=== PATIENT | male | born 1970 | race Caucasian/White ===

== ENCOUNTER 2018-06-08 14:46 | Emergency (ER) | payer MEDICAID ==
--- NOTE | 2018-06-08 16:05 | Emergency Department Record ---
History of Present Illness - General Chief Complaint: Abdominal Pain Stated Complaint: ABD PAIN, BLOATING Time Seen by Provider: 06/08/18 16:04 Source: Patient Mode of Arrival: Ambulatory Limitations: No limitations - History of Present Illness Initial Comments: 48 yo male presents with abdominal pain and bloating for about 2 months. It is worse with certain foods or eating. He say his PCP and has been on GERD medication. He states he is not improved yet. He has some nausea. NO fevers. NO vomiting or diarrhea. No back pain or rash. He had a hernia repaired as an infant. MD Complaint: Abdominal pain Location: Epigastric, RUQ Migration to: Epigastric, RUQ Severity: Moderate Quality: Aching Consistency: Intermittent Improves With: Nothing Worsens With: Eating Context: Other Associated Symptoms: Anorexia, Other (weight gain) - Related Data Home Medications Medication Instructions Recorded Confirmed Last Taken Chlorthalidone 25 mg PO ASDIR 06/08/18 06/08/18 06/08/18 Omeprazole [Prilosec] 40 mg PO DAILY 06/08/18 06/08/18 06/08/18 Tizanidine HCl 4 mg PO ASDIR 06/08/18 06/08/18 06/08/18 Previous Rx's Medication Instructions Recorded Ondansetron [Zofran Odt] 4 mg PO Q8H #15 tab.rapdis 06/08/18 Sucralfate [Carafate] 1 g PO BID #30 udc 06/08/18 Allergies Allergy/AdvReac Type Severity Reaction Status Date / Time No Known Drug Allergies Allergy Verified 06/08/18 15:52 Review of Systems Constitutional: Denies: Chills, Fever, Malaise, Weakness Eyes: Denies: Eye discharge ENT: Denies: Congestion, Throat pain Respiratory: Denies: Cough, Dyspnea, Hemoptysis, Stridor, Wheezes Cardiovascular: Denies: Chest pain, Palpitations, Syncope Endocrine: Denies: Fatigue Gastrointestinal: Reports: Abdominal pain, Nausea. Denies: Diarrhea, Vomiting Genitourinary: Denies: Dysuria, Frequency, Hematuria Musculoskeletal: Denies: Arthralgia, Back pain, Myalgia Skin: Denies: Bruising, Change in color, Rash Neurological: Denies: Headache, Numbness, Weakness Psychiatric: Denies: Anxiety Hematological/Lymphatic: Denies: Easy bleeding, Easy bruising Past Medical History - SOCIAL HISTORY Smoking Status: Former smoker - RESPIRATORY Hx Respiratory Disorders: No - CARDIOVASCULAR Hx Cardio Disorders: Yes Hx Hypertension: Yes - NEURO Hx Neuro Disorders: Yes Hx Headaches: Yes Comment:: sinus polps - GI Hx GI Disorders: Yes Hx Reflux: Yes - Hx Genitourinary Disorders: No - ENDOCRINE Hx Endocrine Disorders: Yes Hx Diabetes: No Hx Thyroid Disease: Yes - MUSCULOSKELETAL Hx Musculoskeletal Disorders: Yes Hx Arthritis: Yes - PSYCH Hx Psych Problems: Yes Hx Anxiety: Yes Hx Depression: Yes - HEMATOLOGY/ONCOLOGY Hx Hematology/Oncology Disorders: No Family Medical History Hx Anxiety: Grandparents Hx Diabetes: Father, Mother, Grandparents Hx Heart Disease: Father, Grandparents Hx Stroke: Grandparents Physical Exam - General General Appearance: Alert, Oriented x3, Cooperative, No acute distress Limitations: No limitations - Head Head exam: Normal inspection - Eye Eye exam: Normal appearance. negative: Conjunctival injection, Scleral icterus - ENT ENT exam: Normal exam Ear exam: Normal external inspection Nasal Exam: Normal inspection Mouth exam: Normal external inspection - Neck Neck exam: Normal inspection - Respiratory Respiratory exam: Normal lung sounds bilaterally. negative: Respiratory distress - Cardiovascular Cardiovascular Exam: Regular rate, Normal rhythm, Normal heart sounds - GI/Abdominal GI/Abdominal exam: Soft, Normal bowel sounds, Tenderness (mildly tender RUQ and epigastric). negative: Distended, Guarding, Rebound, Rigid - Rectal Rectal exam: Deferred - exam: Deferred - Extremities Extremities exam: Normal inspection, Full ROM, Normal capillary refill. negative: Tenderness - Back Back exam: Reports: Normal inspection, Full ROM. Denies: Muscle spasm, Rash noted, Tenderness - Neurological Neurological exam: Alert, Oriented X3 - Psychiatric Psychiatric exam: Normal affect, Normal mood - Skin Skin exam: Dry, Intact, Normal color, Warm Course - Reevaluation(s) Reevaluation #1: 06/08/18 17:23 The labs were reviewed. The K is 3.1 The CBC is normal The AST is 52 and ALT is 67 Normal Alk Phos and Bili. 06/08/18 17:24 The UA is normal 06/08/18 19:31 CT scan is negative for acute process. Hiatal Hernia. Medical Decision Making - Lab Data Result diagrams: 06/08/18 16:23 06/08/18 16:23 Disposition Disposition: Discharge Clinical Impression: Abdominal pain, Hiatal hernia Disposition: Home, Self-Care Condition: (1) Good Instructions: Abdominal Pain (ED), Gastroesophageal Reflux Disease (ED) Additional Instructions: Call your doctor this week for a recheck If your symptoms continue you may need an Ultrasound as well of your gall bladder or a HIDA scan Follow up with the GI doctor as scheduled for your evaluation Prescriptions: Ondansetron [Zofran Odt] 4 mg PO Q8H #15 tab.rapdis Sucralfate [Carafate] 1 g PO BID #30 udc Forms: Patient Portal Access Time of Disposition: 19:32 Quality - Quality Measures Quality Measures: N/A - Blood Pressure Screening Does Patient Have Any of the Following: No Blood Pressure Classification: Hypertensive Reading Systolic Measurement: 138 Diastolic Measurement: 91 Screening for High Blood Pressure: < Pre-Hypertensive BP, F/U Documented > [ [id number]] Pre-Hypertensive Follow-up Interventions: Referral to alternative/primary care provider.
[2018-06-08] MEDS ORDERED: 0.9 % SODIUM CHLORIDE 1,000 ML BAG IV ONE (16:13)
[2018-06-08] MEDS ORDERED: ACETAMINOPHEN 1,000 MG/100 ML BTL IVPB ONE (16:13)
[2018-06-08] MEDS: ONDANSETRON HCL IV 4 MG/2 ML VIAL IVP ONE ×2 (16:25→16:29)
[2018-06-08 16:34] LABS: BASO % 0.6 % (0-6); EOS % 7.5 % (0-6); GRAN % 62.1 % (47-80); HEMATOCRIT 46.4 % (42.0-52.0); HEMOGLOBIN 15.8 gm/dl (14.0-18.0); MEAN CELL VOLUME 90.8 fl (81-97); MEAN CORPUSCULAR HEMOGLOBIN 30.9 pg (27-33); MEAN CORPUSCULAR HGB CONC 34.1 g/dl (32-36); MEAN PLATELET VOLUME 10.5 fl (7.4-10.4); MONO % 8.8 % (0-9); PLATELET COUNT 297 K/uL (130-400); RED BLOOD COUNT 5.11 M/uL (4.40-5.70); RED CELL DISTRIBUTION WIDTH 13.5 % (11.5-14.5); WHITE BLOOD COUNT W/O DIFF 7.8 K/uL (4.2-12.2)
[2018-06-08 16:43] LABS: BLOOD UREA NITROGEN 18 mg/dL (6-20); EST GLOMERULAR FILTRATION RATE > 60 mL/min; TOTAL PROTEIN 7.5 g/dL (6.6-8.7)
[2018-06-08 16:45] LABS: GLUCOSE,RANDOM 109 mg/dL (74-109)
[2018-06-08 16:47] LABS: URINE APPEARANCE CLEAR; URINE BILIRUBIN NEGATIVE (NEGATIVE); URINE BLOOD NEGATIVE (NEGATIVE); URINE COLOR YELLOW; URINE GLUCOSE (UA) NEGATIVE (NEGATIVE); URINE KETONE NEGATIVE (NEGATIVE); URINE LEUKOCYTE ESTERASE NEGATIVE (NEGATIVE); URINE NITRITE NEGATIVE (NEGATIVE); URINE PROTEIN NEGATIVE (NEGATIVE); URINE UROBILINOGEN 0.2 E.U./dL (0.20 - 1.00)
[2018-06-08 16:48] LABS: ALB/GLOB RATIO 1.4 (1.1-1.8); ALBUMIN 4.4 g/dL (4.0-5.0); ALKALINE PHOSPHATASE 72 U/L (40-129); ALT/SGPT 67 U/L (<41); AST/SGOT 52 U/L (10.0-50.0); LIPASE 35 U/L (13-60)
[2018-06-08] MEDS ORDERED: POTASSIUM CHLORIDE 20 MEQ TABLET PO ONE (17:22)
--- NOTE | 2018-06-09 15:18 | CT SCAN REPORT ---
EXAM: CT OF THE ABDOMEN AND PELVIS WITH CONTRAST HISTORY: RIGHT UPPER QUADRANT PAIN. TECHNIQUE: Sequential axial images were obtained from the diaphragms through the ischiorectal fossa after intravenous administration of 100 ml of Omnipaque 300 contrast material. Oral contrast was also administered. FINDINGS: There is fatty infiltration of the liver. There is a small siding type hiatal hernia. No gallstones or ductal dilatation. The pancreas and spleen appear normal. The adrenal glands and kidneys appear normal. No CT findings suggestive of obstructive uropathy. The small bowel appears normal. The appendix is visualized and appears normal. There is mild diverticular disease. No evidence of diverticulitis. The osseous structures are normal. IMPRESSION: 1. MILD SIGMOID COLON DIVERTICULOSIS. NO EVIDENCE OF DIVERTICULITIS. THE APPENDIX IS VISUALIZED AND APPEARS NORMAL. 2. FATTY INFILTRATION OF THE LIVER. NO GALLSTONES OR DUCTAL DILATATION. 3. SMALL SLIDING TYPE HIATAL HERNIA. JOB NUMBER: [id number] MTDD
== END 2018-06-08 19:52 | disposition home or self-care (01) ==
LOC: ER 14:46
DX: R10.11 Right upper quadrant pain (principal); K44.9 Diaphragmatic hernia without obstruction or gangrene; R11.0 Nausea; I10 Essential (primary) hypertension; Z87.891 Personal history of nicotine dependence
CPT/HCPCS: 99284 ×2; 96365; 96375; 83690; 85025; 80053; 81003; 74177; Q9967; J2405; J7030